=== PATIENT | female | born 1980 | race American Indian/Alaskan Native ===

== ENCOUNTER 2017-02-17 19:05 | Emergency (ER) | payer MEDICARE ==
[2017-02-18] MEDS ORDERED: ULTRAM PO ONE (00:53)
--- NOTE | 2017-02-18 00:55 | Emergency Department Report ---
HPI - General Chief Complaint: Pain General Time Seen by Provider: 02/18/17 00:44 - HPI HPI: Patient is a 36-year-old female with a history of chronic joint pains being treated by a pain specialist, who presents ED complaining of bilateral buttock pain 2 days. Patient states pain is throbbing and sharp and intermittent in nature. Patient states pain travels across both cheeks and sometimes down her thighs. Patient states eating on her back makes the pain worse. Patient denies recent injury or trauma she denies bilateral calf pain. Patient denies fevers chills/nausea/vomiting/abdominal pain/chest pain/ shortness of breath / calf pain bilaterally ED Past Medical Hx - Past Medical History Hx Congestive Heart Failure: No Hx Diabetes: No Hx Asthma: No Hx COPD: No Additional medical history: Neuromyelitis optica - Surgical History Additional Surgical History: right tube removed - Social History Smoking Status: Current Every Day Smoker Substance Use Type: None - Medications Home Medications: Home Medications Medication Instructions Recorded Confirmed Last Taken Type Gabapentin [Neurontin] 3 tab PO TID #270 tablet 05/09/15 04/20/16 04/17/16 Rx ALPRAZolam [Xanax TAB] 2 mg PO BID 04/20/16 04/20/16 04/17/16 History Oxycodone HCl [Roxicodone TAB] 15 mg PO Q4H PRN 04/20/16 04/20/16 04/17/16 History Tizanidine HCl [Zanaflex] 4 mg PO QHS 04/20/16 04/20/16 04/17/16 History HYDROcodone/APAP 7.5-325 [Arrington 1 each PO Q6HR PRN #12 tablet 02/18/17 Unknown Rx 7.5/325] ED Review of Systems ROS: Stated complaint: HIP PAIN Other details as noted in HPI Constitutional: denies: chills, fever Eyes: denies: eye pain, eye discharge, vision change ENT: denies: ear pain, throat pain Respiratory: denies: cough, shortness of breath, wheezing Cardiovascular: denies: chest pain, palpitations Endocrine: no symptoms reported Gastrointestinal: denies: abdominal pain, nausea, vomiting, diarrhea, constipation, hematemesis, melena, hematochezia Genitourinary: denies: urgency, dysuria, frequency, hematuria, discharge Musculoskeletal: denies: back pain, joint swelling, arthralgia Skin: denies: rash, lesions Neurological: denies: headache, weakness, paresthesias Psychiatric: denies: anxiety, depression Hematological/Lymphatic: denies: easy bleeding, easy bruising Physical Exam - Physical Exam Vital Signs: Vital Signs 02/17/17 19:19 Temperature 98.2 F Pulse Rate 89 Respiratory 18 Rate Blood Pressure 117/67 O2 Sat by Pulse 100 Oximetry Physical Exam: GENERAL: Alert and oriented x3, no apparent distress, Normal Gait, atraumatic. HEAD: Head is normocephalic and a-traumatic. EYES: Extra ocular muscles are intact. Pupils are equal, round, and reactive to light and accommodation. NECK: Supple. Non edematous, No carotid bruits. No lymphadenopathy or thyromegaly. LUNGS: Symetrical with respiration, No wheezing, no rales or crackles, CTAB. HEART: S1, S2 present, regular rate and rhythm without murmur, no rubs, no gallops. ABDOMEN: No organomegaly was noted,Positive bowel sounds, soft, and non- distended. . Nontender to palpation on all Quadrants, NO CVA tenderness. EXTREMITIES/MUSCULOSKELETAL: No cyanosis, clubbing, rash, lesions or edema. Full ROM bilaterally. UE/LE Pulses 2+ bilaterally. LE and UE 5+ strength bilaterally. Straight leg raise negative. Nontender to palpation of bilateral cheek, no spinal tenderness full range of motion of back NEUROLOGIC: No focal Deficit, Cranial nerves II through XII are grossly intact. No loss of sensation, PSYCHIATRIC: Mood is congruent with affect, denies suicidal or homicidal ideations. SKIN: Warm and dry, No lesions, No ulceration or induration present. ED Course Vital Signs 02/17/17 19:19 Temperature 98.2 F Pulse Rate 89 Respiratory 18 Rate Blood Pressure 117/67 O2 Sat by Pulse 100 Oximetry ED Medical Decision Making - Medical Decision Making 36-year-old male presents with chronic pain. ED course: Patient received 100 mg as tramadol. Patient denied tramadol and states she is allergic to that as well. 2 tablet of Percocets given to patient while in the ED. Discussed the patient was asked to follow-up with primary care physician Dr. Humphrey for continued management of chronic pain. Discussed with patient home medication of Arrington tabs. Vital signs stable. Patient is in no acute or respiratory distress. Critical care attestation.: If time is entered above; I have spent that time in minutes in the direct care of this critically ill patient, excluding procedure time. ED Disposition Clinical Impression: Lumbar radiculopathy Chronic pain Qualifiers: Chronic pain type: other chronic pain Qualified Code(s): G89.29 - Other chronic pain Disposition: DISCHARGED TO HOME OR SELFCARE Is pt being admited?: No Does the pt Need Aspirin: No Condition: Stable Instructions: Chronic Pain (ED), Lumbar Radiculopathy (ED), Chronic Back Pain ( ED) Additional Instructions: Follow-up with her primary care doctor. Prescriptions: HYDROcodone/APAP 7.5-325 [Arrington 7.5/325] 1 each PO Q6HR PRN #12 tablet PRN Reason: Pain Referrals: JONATHAN AYON MD [Primary Care Provider] - 3-5 Days Forms: Work/School Release Form(ED) Time of Disposition: 00:59
[2017-02-18] MEDS ORDERED: PERCOCET 5/325 PO ONE (01:23)
[2017-02-18 01:53] VITALS: BP 120/65
== END 2017-02-18 01:53 | disposition home or self-care (01) ==
LOC: ED 19:05
DX: M54.16 Radiculopathy, lumbar region (principal); G89.29 Other chronic pain; F17.200 Nicotine dependence, unspecified, uncomplicated
CPT/HCPCS: 99282

== ENCOUNTER 2019-03-08 17:20 | Emergency (ER) | payer MEDICARE ==
--- NOTE | 2019-03-08 18:09 | Emergency Department Report ---
Blank Doc - Documentation Documentation: 38 c/o pain to thoracic pain and pain to legs spontaneous flare. no trauma. no fever or sob. no chest pain.
--- NOTE | 2019-03-08 22:55 | Emergency Department Report ---
ED Lower Extremity HPI - General Chief Complaint: Pain General Stated Complaint: BODY PAIN Time Seen by Provider: 03/08/19 17:56 Source: patient Mode of arrival: Ambulatory Limitations: No Limitations - History of Present Illness Initial Comments: This is a 38-year-old -[place] female who presents with pain to right lower extremity and pain for 3 days. Past medical history neuromyelitis optica. Patient states she believes she is having a flare. Reports pain is worse with walking. Reports numbness with weightbearing to right lower extremity. Patient states she is followed by pain management but ran out oxycodone pain medication. Patient states she had a neurologist at [facility] about unable to get an appointment. She is looking for a new neurologist. She denies visual changes, swelling, recent injury. MD Complaint: leg injury (right lower extremity) Onset/Timin -: days(s) Injury: Leg: Right Type of Injury: unknown Place: home Severity: severe Severity scale (0 -10): 10 Improves With: nothing Worsens With: weight bearing Associated Symptoms: numbness, able to partially bear weight, ambulatory - Related Data Home Medications Medication Instructions Recorded Confirmed Last Taken ALPRAZolam [Xanax TAB] 2 mg PO BID 04/20/16 04/20/16 04/17/16 Tizanidine HCl [Zanaflex] 4 mg PO QHS 04/20/16 04/20/16 04/17/16 Previous Rx's Medication Instructions Recorded Last Taken Type Gabapentin [Neurontin] 3 tab PO TID #270 tablet 05/09/15 04/17/16 Rx HYDROcodone/APAP 7.5-325 [[place] 1 each PO Q6HR PRN #12 tablet 02/18/17 Unknown Rx 7.5/325] Oxycodone HCl [Roxicodone TAB] 15 mg PO Q4H PRN #12 tablet 03/09/19 Unknown Rx Prednisone [predniSONE 10 mg 10 mg PO .TAPER #1 tab.ds.pk 03/09/19 Unknown Rx (6-Day Pack, 21 Tabs)] Allergies Allergy/AdvReac Type Severity Reaction Status Date / Time ibuprofen Allergy Rash Verified 03/08/19 17:23 latex Allergy Hives Verified 03/08/19 17:23 metronidazole [From Flagyl] Allergy Hives Verified 03/08/19 17:23 morphine Allergy Hives Verified 03/08/19 17:23 prochlorperazine edisylate Allergy Swelling Verified 03/08/19 17:23 [From Compazine] prochlorperazine maleate Allergy Swelling Verified 03/08/19 17:23 [From Compazine] sulfamethoxazole Allergy Rash Verified 03/08/19 17:23 [From Septra] tomato Allergy Unknown Verified 03/08/19 17:23 tramadol HCl [From Ultram] Allergy Hives Verified 03/08/19 17:23 trimethoprim [From Septra] Allergy Rash Verified 03/08/19 17:23 ED Review of Systems ROS: Stated complaint: BODY PAIN Other details as noted in HPI Constitutional: denies: chills, fever Respiratory: denies: cough, shortness of breath, wheezing Cardiovascular: denies: chest pain, palpitations Gastrointestinal: denies: abdominal pain, nausea, diarrhea Musculoskeletal: arthralgia (RLE). denies: back pain, joint swelling Skin: denies: rash, lesions Neurological: denies: headache, weakness, paresthesias Psychiatric: denies: anxiety, depression ED Past Medical Hx - Past Medical History Hx Congestive Heart Failure: No Hx Diabetes: No Hx Asthma: No Hx COPD: No Additional medical history: Neuromyelitis optica - Surgical History Additional Surgical History: right tube removed - Social History Smoking Status: Current Every Day Smoker Substance Use Type: None - Medications Home Medications: Home Medications Medication Instructions Recorded Confirmed Last Taken Type Gabapentin [Neurontin] 3 tab PO TID #270 tablet 05/09/15 04/20/16 04/17/16 Rx ALPRAZolam [Xanax TAB] 2 mg PO BID 04/20/16 04/20/16 04/17/16 History Tizanidine HCl [Zanaflex] 4 mg PO QHS 04/20/16 04/20/16 04/17/16 History HYDROcodone/APAP 7.5-325 [[place] 1 each PO Q6HR PRN #12 tablet 02/18/17 Unknown Rx 7.5/325] Oxycodone HCl [Roxicodone TAB] 15 mg PO Q4H PRN #12 tablet 03/09/19 Unknown Rx Prednisone [predniSONE 10 mg 10 mg PO .TAPER #1 tab.ds.pk 03/09/19 Unknown Rx (6-Day Pack, 21 Tabs)] ED Physical Exam - General Limitations: No Limitations General appearance: alert, in no apparent distress - Respiratory Respiratory exam: Present: normal lung sounds bilaterally. Absent: respiratory distress - Cardiovascular Cardiovascular Exam: Present: regular rate, normal rhythm. Absent: systolic murmur, diastolic murmur, rubs, gallop - GI/Abdominal GI/Abdominal exam: Present: soft, normal bowel sounds - Expanded Lower Extremity Exam Right Hip exam: Present: normal inspection, full ROM Upper Leg exam: Present: normal inspection, full ROM Knee exam: Present: normal inspection, full ROM Lower Leg exam: Present: normal inspection, full ROM Ankle exam: Present: normal inspection, full ROM Foot/Toe exam: Present: full ROM. Absent: tenderness, swelling, abrasion, dislocation, erythema, amputation, puncture wound, foreign body Neuro vascular tendon exam: Present: no vascular compromise Gait: Positive: observed and limited by pain - Neurological Exam Neurological exam: Present: alert, oriented X3 - Expanded Neurological Exam Expanded Neurological exam: Present: innattentive. Absent: memory loss-remote event, memory loss-recent event, ataxia, total aphasia, tremor Patient oriented to: Present: person, place, time Speech: Present: fluid speech Cranial nerves: EOM's Intact: Normal, Gag Reflex: Normal, Facial Sensation: Normal Cerebellar function: Finger to Nose: Normal, Heel to Bhakta: Normal Upper motor neuron: Sensory Extinction: Normal Sensory exam: Lower Extremity Light Touch: Normal, Lower Extremity Pin Prick: Normal, Lower Extremity Temperature: Normal Motor strength exam: RLE: 4, LLE: 4 Best Eye Response ([place]): (4) open spontaneously Best Motor Response ([place]): (6) obeys commands Best Verbal Response (Vasile): (5) oriented Vasile Total: 15 - Psychiatric Psychiatric exam: Present: normal affect, normal mood - Skin Skin exam: Present: warm, dry, intact, normal color. Absent: rash ED Course Vital Signs 03/08/19 03/08/19 03/08/19 17:55 21:01 21:40 Temperature 98.2 F Pulse Rate 94 H 72 64 Respiratory 20 18 Rate Blood Pressure 103/71 Blood Pressure 126/80 102/58 [Left] O2 Sat by Pulse 99 97 Oximetry ED Lower Extremity MDM - Medical Decision Making Patient was examined by me. Vitals are normal and patient is in no acute distr ess. Past medical history of neuromyelitis optica. The site initiated. Patient given Solu-Medrol and Dilaudid. Patient reports pain 7 out of 10 on pain scale. Consulted with the attending, Dalton Santiago. Start prednisone and oxycodone for pain. Referral to neurologist. Plan discussed with patient to discharge home and treat outpatient. She agrees with ER plan. Patient discharged home in stable condition. Follow up with PCP in 2-3 days. Critical care attestation.: If time is entered above; I have spent that time in minutes in the direct care of this critically ill patient, excluding procedure time. ED Disposition Clinical Impression: Neuromyelitis optica, Right leg pain Disposition: TO HOME OR SELFCARE Is pt being admited?: No Does the pt Need Aspirin: No Condition: Stable Instructions: Arthralgia (ED) Additional Instructions: Follow-up with the neurologist from the referrals below for continued care. Prescriptions: Prednisone [predniSONE 10 mg (6-Day Pack, 21 Tabs)] 10 mg PO .TAPER #1 tab.ds.pk Oxycodone HCl [Roxicodone TAB] 15 mg PO Q4H PRN #12 tablet PRN Reason: Pain Referrals: TRACY MALAGON MD [Primary Care Provider] - 3-5 Days JUICE THOMAS MD [Staff Physician] - 3-5 Days Time of Disposition: 03:42
[2019-03-08] MEDS ORDERED: SOLU-Medrol IV ONE (22:56)
[2019-03-08] MEDS ORDERED: DILAUDID IV ONE (22:56)
[2019-03-09] MEDS ORDERED: DILAUDID IV ONE (01:46)
[2019-03-09 07:14] VITALS: BP 112/74
== END 2019-03-09 04:00 | disposition home or self-care (01) ==
LOC: ED 17:20
DX: G36.0 Neuromyelitis optica [Devic] (principal); F17.200 Nicotine dependence, unspecified, uncomplicated; M79.604 Pain in right leg; Z88.2 Allergy status to sulfonamides; Z88.8 Allergy status to other drugs, medicaments and biological substances; Z88.6 Allergy status to analgesic agent; Z88.1 Allergy status to other antibiotic agents; Z91.040 Latex allergy status
CPT/HCPCS: 96374; 96375; 96376; 99283; J1170; J2930

== ENCOUNTER 2019-06-07 01:29 | Inpatient (IN) | payer MEDICARE ==
[2019-06-07 03:24] LABS: Basophils % (Auto) 0.6 % (0.0-1.8); Eosinophils # (Auto) 0.1 K/mm3 (0.0-0.4); Eosinophils % (Auto) 2.7 % (0.0-4.3); Hematocrit 37.4 % (30.3-42.9); Hemoglobin 12.2 gm/dl (10.1-14.3); Lymphocytes # (Auto) 2.6 K/mm3 (1.2-5.4); Lymphocytes % (Auto) 48.8 % (13.4-35.0); Mean Corpuscular HGB Conc 33 % (30-34); Mean Corpuscular Volume 80 fl (79-97); Monocytes # (Auto) 0.5 K/mm3 (0.0-0.8); Monocytes % (Auto) 9.1 % (0.0-7.3); Platelet Count 263 K/mm3 (140-440); Red Blood Count 4.67 M/mm3 (3.65-5.03)
[2019-06-07 03:43] LABS: BUN/Creatinine Ratio 6; Blood Urea Nitrogen 5 mg/dL (7-17); Calcium 9.5 mg/dL (8.4-10.2); Hemolysis Index 3
--- NOTE | 2019-06-07 04:35 | Cat Scan Report ---
CT HEAD WITHOUT CONTRAST INDICATION: MAIN: History of MS, Headache for 4 days, right leg is weak and painful, blurred vision. TECHNIQUE: All CT scans at this location are performed using CT dose reduction for ALARA by means of automated e xposure control. COMPARISON: CT 04/20/2016. FINDINGS: HEMORRHAGE: None. EXTRA-AXIAL SPACES: Normal in size and morphology for the patient's age. VENTRICULAR SYSTEM: Normal in size and morphology for the patient's age. BRAIN PARENCHYMA: No acute findings. MIDLINE SHIFT OR HERNIATION: None. ORBITS: Normal as visualized. SOFT TISSUES OF HEAD: Normal. CALVARIUM: Normal. VISUALIZED PARANASAL SINUSES AND MASTOID AIR CELLS: Clear. ADDITIONAL FINDINGS: None. IMPRESSION: 1. No acute intracranial abnormality. Signer Name: Tez Hansen MD Signed: 06/07/2019 4:30 AM Workstation Name: [id number]
--- NOTE | 2019-06-07 06:18 | Emergency Department Report ---
ED General Adult HPI - General Chief complaint: Neuro Symptoms/Deficit Stated complaint: BODY PAIN/NUMBNESS Time Seen by Provider: 06/07/19 06:08 Source: patient Mode of arrival: Ambulatory Limitations: No Limitations - History of Present Illness Initial comments: This is a 38-year-old female with a history of NMO and chronic pain. She is not entirely forthcoming about her medical history. She states she was admitted here 3 months ago but that is inaccurate. When questioned further, she amends her history to an admission at [facility]. She finally admits that she was admitted to [facility] in wor but not discharged until January. Thereafter she has not followed up with any neurologist. She states that she was receiving chronic pain management with oxycodone and Lyrica through a pain clinic that was on [facility] but moved to [place]. She presents with a 2 day history of pain and numbness in her right lower extremity. She states that the numbness begins in her foot and radiates towards her thigh. She doesn't report for acute weakness. She states this is an exacerbation of her NMO I would like to be admitted. She states she is able to walk. From my note 2015 prior to admission: Patient is a poor historian. She carries a diagnosis of NMO. Complains of increasing tingling and numbness of her lower extremities which she states is worse on the left compared to the right. She states that she has generalized pain and generalized weakness. She currently does not have a neurologist. She has been seen and treated at this facility last in September with high-dose steroids. Per her discharge summary: 34 YO Female admitted for BLE weakness secondary to Neuromyelitis Optica. Pt convalesced well during hospital course. Pt treated with IV steroid therapy, with a decreased progression of symptoms. Pt seen and evaluated by PT and deemed a rehab candidate. Case management consulted for D/C planning. Pt medically optimized and subsequently discharged to rehab. Pt evaluated prior to discharge but no significant new physical exam findings. Pt instructed to f/u pcp 1wk, neurology prn. Apparently she is additionally been treated at a pain clinic with chronic narcotics as well as gabapentin. The patient does not now complain of an acute headache. She complains of no breathing difficulty nor any hesitancy or feeling of urinary retention. He does have some chronic pain of her entire spine. She states that she is able to walk. He arrived here fully ambulatory. She does not report any acute change in vision. -: Gradual, days(s) Location: right, lower extremity Quality: aching Consistency: intermittent Improves with: none Worsens with: none Associated Symptoms: denies other symptoms Treatments Prior to Arrival: none - Related Data Home Medications Medication Instructions Recorded Confirmed Last Taken ARIPiprazole [Abilify] 30 mg PO BID 06/07/19 06/07/19 Unknown Previous Rx's Medication Instructions Recorded Last Taken Type Oxycodone HCl [roxiCODONE] 15 mg PO Q4H PRN #12 tablet 03/09/19 Unknown Rx Allergies Allergy/AdvReac Type Severity Reaction Status Date / Time ibuprofen Allergy Rash Verified 03/08/19 17:23 latex Allergy Hives Verified 03/08/19 17:23 metronidazole [From Flagyl] Allergy Hives Verified 03/08/19 17:23 morphine Allergy Hives Verified 03/08/19 17:23 prochlorperazine edisylate Allergy Swelling Verified 03/08/19 17:23 [From Compazine] prochlorperazine maleate Allergy Swelling Verified 03/08/19 17:23 [From Compazine] sulfamethoxazole Allergy Rash Verified 03/08/19 17:23 [From Septra] tomato Allergy Unknown Verified 03/08/19 17:23 tramadol HCl [From Ultram] Allergy Hives Verified 03/08/19 17:23 trimethoprim [From Septra] Allergy Rash Verified 03/08/19 17:23 ED Review of Systems ROS: Stated complaint: BODY PAIN/NUMBNESS Other details as noted in HPI Constitutional: denies: chills, fever Eyes: denies: eye pain, eye discharge, vision change ENT: denies: ear pain, throat pain Respiratory: denies: cough, shortness of breath, wheezing Cardiovascular: denies: chest pain, palpitations Endocrine: no symptoms reported Gastrointestinal: denies: abdominal pain, nausea, diarrhea Genitourinary: denies: urgency, dysuria, discharge Musculoskeletal: as per HPI (chronic pain), other (right lower extremity pain). denies: back pain Skin: denies: rash, lesions Neurological: as per HPI, paresthesias. denies: headache, weakness Psychiatric: denies: anxiety, depression Hematological/Lymphatic: denies: easy bleeding, easy bruising ED Past Medical Hx - Past Medical History Previous Medical History?: Yes Hx Congestive Heart Failure: No Hx Diabetes: No Hx Asthma: No Hx COPD: No Additional medical history: Neuromyelitis optica - Surgical History Additional Surgical History: right fallopian tube removed - Social History Smoking Status: Current Every Day Smoker - Medications Home Medications: Home Medications Medication Instructions Recorded Confirmed Last Taken Type Oxycodone HCl [roxiCODONE] 15 mg PO Q4H PRN #12 tablet 03/09/19 06/07/19 Unknown Rx ARIPiprazole [Abilify] 30 mg PO BID 06/07/19 06/07/19 Unknown History ED Physical Exam - General Limitations: No Limitations General appearance: alert, in no apparent distress, cachectic (somewhat, denies recent weight loss) - Head Head exam: Present: atraumatic, normocephalic - Eye Eye exam: Present: normal appearance, PERRL, EOMI. Absent: scleral icterus - ENT ENT exam: Present: mucous membranes moist - Neck Neck exam: Present: normal inspection. Absent: tenderness, meningismus - Respiratory Respiratory exam: Present: normal lung sounds bilaterally. Absent: respiratory distress - Cardiovascular Cardiovascular Exam: Present: regular rate, normal rhythm. Absent: systolic murmur, diastolic murmur, rubs, gallop - GI/Abdominal GI/Abdominal exam: Present: soft, normal bowel sounds. Absent: distended, tenderness, guarding, rebound, rigid - Extremities Exam Extremities exam: Present: normal inspection, full ROM. Absent: pedal edema, joint swelling, calf tenderness - Back Exam Back exam: Present: normal inspection - Neurological Exam Neurological exam: Present: alert, oriented X3, CN II-XII intact, motor sensory deficit. Absent: reflexes normal (patient does have bilateral clonus of her lower extremities right is substantially worse than the left. She did have 4+ out of 5 strength in her right lower extremity diffusely. She did have some drift. Describes) - Psychiatric Psychiatric exam: Present: normal affect, normal mood - Skin Skin exam: Present: warm, dry, intact, normal color. Absent: rash ED Course Vital Signs 06/07/19 06/07/19 06/07/19 02:37 05:38 05:45 Temperature 98.0 F Pulse Rate 81 Respiratory 18 Rate Blood Pressure 118/74 120/69 O2 Sat by Pulse 100 97 99 Oximetry 06/07/19 05:59 Temperature Pulse Rate 87 Respiratory 16 Rate Blood Pressure O2 Sat by Pulse 100 Oximetry - Reevaluation(s) Reevaluation #1: Discussed with hospitalist. Admit their service. 06/07/19 08:46 ED Medical Decision Making - Lab Data Result diagrams: 06/07/19 03:02 06/07/19 03:02 Laboratory Results - last 24 hr 06/07/19 06/07/19 06/07/19 03:02 03:02 03:02 WBC 5.2 RBC 4.67 Hgb 12.2 Hct 37.4 MCV 80 MCH 26 L MCHC 33 RDW 18.0 H Plt Count 263 Lymph % (Auto) 48.8 H [place] % (Auto) 9.1 H Eos % (Auto) 2.7 Baso % (Auto) 0.6 Lymph # 2.6 [place] # 0.5 Eos # 0.1 Baso # 0.0 Seg Neutrophils % 38.8 L Seg Neutrophils # 2.0 Sodium 142 Potassium 4.1 Chloride 102.3 Carbon Dioxide 28 Anion Gap 16 BUN 5 L Creatinine 0.9 Estimated GFR > 60 BUN/Creatinine Ratio 6 Glucose 90 Calcium 9.5 HCG, Qual Negative Critical care attestation.: If time is entered above; I have spent that time in minutes in the direct care of this critically ill patient, excluding procedure time. ED Disposition Clinical Impression: Neuromyelitis optica, Weakness of right lower extremity, Paresthesia of bilateral legs, Non-compliance Chronic pain Qualifiers: Chronic pain type: other chronic pain Qualified Code(s): G89.29 - Other chronic pain Disposition: DC-09 OP ADMIT IP TO THIS HOSP Is pt being admited?: Yes Does the pt Need Aspirin: Yes Condition: Stable Referrals: SHANT FLANAGAN DO [Primary Care Provider] - 3-5 Days Time of Disposition: 08:47
[2019-06-07] MEDS ORDERED: NACL 0.9% 1000 ML 1,000 ML IV ONE (06:49)
[2019-06-07] MEDS ORDERED: SOLU-Medrol IV ONE (06:49)
[2019-06-07] MEDS ORDERED: ZOFRAN IV ONE (06:49)
[2019-06-07] MEDS ORDERED: DILAUDID IV ONE (06:50)
[2019-06-07] MEDS ORDERED: BENADRYL IV ONE (06:50)
--- NOTE | 2019-06-07 09:00 | History and Physical Report ---
History of Present Illness Date of examination: 06/07/19 Date of admission: 06/07/19 Chief complaint: Bilateral lower extremity weakness and numbness for the last 2 days History of present illness: 38-year-old -[place] female patient with significant past medical history of Neuromyelitis optica, multiple admissions in the past, recently admitted to [facility] presented to the emergency room with bilateral lower extremity weakness and numbness for the last 2 days, She also sees pain management for her chronic pain syndrome Patient denies any headache dizziness, Denies nausea vomiting abdominal pain, Denies chest pain or shortness of breath ,No history of trauma She complains of generalized body pains CT head without contrast no acute abnormality noted Received high dose solumedrol emergency room Past History Past Medical History: other (Neuromyelitis optica, chronic pain syndrome, history of depression) Past Surgical History: Other (ectopic ) Social history: smoking, full code. denies: alcohol abuse, prescription drug abuse Family history: hypertension Medications and Allergies Allergies Allergy/AdvReac Type Severity Reaction Status Date / Time ibuprofen Allergy Rash Verified 03/08/19 17:23 latex Allergy Hives Verified 03/08/19 17:23 metronidazole [From Flagyl] Allergy Hives Verified 03/08/19 17:23 morphine Allergy Hives Verified 03/08/19 17:23 prochlorperazine edisylate Allergy Swelling Verified 03/08/19 17:23 [From Compazine] prochlorperazine maleate Allergy Swelling Verified 03/08/19 17:23 [From Compazine] sulfamethoxazole Allergy Rash Verified 03/08/19 17:23 [From Septra] tomato Allergy Unknown Verified 03/08/19 17:23 tramadol HCl [From Ultram] Allergy Hives Verified 03/08/19 17:23 trimethoprim [From Septra] Allergy Rash Verified 03/08/19 17:23 Home Medications Medication Instructions Recorded Confirmed Last Taken Type Oxycodone HCl [roxiCODONE] 15 mg PO Q4H PRN #12 tablet 03/09/19 06/07/19 Unknown Rx ARIPiprazole [Abilify] 30 mg PO BID 06/07/19 06/07/19 Unknown History Active Meds: Active Medications Sodium Chloride (Nacl 0.9% 1000 Ml) 1,000 mls @ 125 mls/hr IV ONCE ONE Stop: 06/07/19 14:48 Last Admin: 06/07/19 08:03 Dose: 125 mls/hr Documented by: Review of Systems Constitutional: fatigue, weakness Ears, nose, mouth and throat: no nasal congestion, no nasal discharge Cardiovascular: no chest pain, no orthopnea, no palpitations Respiratory: no cough, no shortness of breath Gastrointestinal: no nausea, no vomiting Genitourinary Female: no flank pain, no dysuria Musculoskeletal: leg numbness/tingling, muscle weakness, myalgias, other (bilateral lower extremity weakness) Integumentary: no rash, no lesions Neurological: weakness, parathesias, numbness Psychiatric: no anxiety, no depression Endocrine: no cold intolerance, no heat intolerance Hematologic/Lymphatic: no easy bruising, no easy bleeding Allergic/Immunologic: no urticaria, no allergic rhinitis Exam - Constitutional Vitals: Temp Pulse Resp BP Pulse Ox 98.0 F 87 16 120/69 100 06/07/19 02:37 06/07/19 05:59 06/07/19 05:59 06/07/19 05:45 06/07/19 05:59 General appearance: Present: no acute distress, cachectic, disheveled - EENT Eyes: Present: PERRL, EOM intact - Neck Neck: Present: supple, normal ROM - Respiratory Respiratory effort: normal Respiratory: bilateral: diminished, negative: rales, rhonchi, wheezing - Cardiovascular Rhythm: regular Heart Sounds: Present: S1 & S2 - Extremities Extremities: no ischemia, No edema - Abdominal General gastrointestinal: Present: soft, non-tender, non-distended, normal bowel sounds - Integumentary Integumentary: Present: clear, warm - Musculoskeletal Musculoskeletal: generalized weakness (bilateral lower extremity weakness) - Psychiatric Psychiatric: appropriate mood/affect, cooperative - Neurologic Neurologic: other (bilateral lower extremity weakness, ) Results - Labs CBC & Chem 7: 06/07/19 03:02 06/07/19 03:02 Labs: Abnormal lab results 06/07/19 06/07/19 Range/Units 03:02 03:02 MCH 26 L (28-32) pg RDW 18.0 H (13.2-15.2) % Lymph % (Auto) 48.8 H (13.4-35.0) % [place] % (Auto) 9.1 H (0.0-7.3) % Seg Neutrophils % 38.8 L (40.0-70.0) % BUN 5 L (7-17) mg/dL Assessment and Plan - Patient Problems (1) Neuromyelitis optica Current Visit: Yes Status: Acute Plan to address problem: Patient has history of neuromyelitis optica for many years Came by and lower extremity weakness and numbness IV steroids, pain medications, physical therapy. Occupational therapy Neurology consult (2) Paresthesia of bilateral legs Current Visit: Yes Status: Acute Plan to address problem: Secondary to NMO Continue steroids, supportive care (3) Chronic pain Current Visit: Yes Status: Acute Qualifiers: Chronic pain type: other chronic pain Qualified Code(s): G89.29 - Other chronic pain Plan to address problem: Patient follows pain management for chronic pain needs Pain medications and supportive care (4) Bilateral leg weakness Current Visit: No Status: Acute Plan to address problem: Steroids, supportive care, PT and OT (5) DVT prophylaxis Current Visit: No Status: Acute Plan to address problem: Lovenox (6) Tobacco abuse Current Visit: Yes Status: Acute Plan to address problem: Smoking cessation, advised nicotine patch (7) Tobacco abuse counseling Current Visit: Yes Status: Acute
[2019-06-07] MEDS ORDERED: PERCOCET 5/325 PO PRN (09:04)
[2019-06-07] MEDS ORDERED: NACL 0.9% 1000 ML 1,000 ML IV SCH (10:00)
[2019-06-07] MEDS: PEPCID PO SCH ×2 (12:51→21:16)
[2019-06-07] MEDS ORDERED: SOLU-Medrol IV SCH (14:00)
[2019-06-07] MEDS ORDERED: DILAUDID IM PRN (16:50)
[2019-06-07] MEDS: DILAUDID IV PRN ×2 (17:22→23:33)
--- NOTE | 2019-06-07 19:02 | Progress Note ---
Subjective Date of service: 06/07/19 Interval history: spoke to Dr. Carson earlier ther CT of brain is normal wehich is expected in this form of MS pain is majort issue and she has been on oxycodone po prior so this can safely be resumed I will follow with you no need for LP as w/u established as previous Objective - Vital Sign Vital Signs - 12hr 06/07/19 06/07/19 06/07/19 07:11 07:21 07:30 Temperature Pulse Rate Respiratory Rate Blood Pressure 118/69 118/69 110/66 Blood Pressure [Right] O2 Sat by Pulse 100 100 100 Oximetry 06/07/19 06/07/19 06/07/19 07:41 07:51 08:30 Temperature Pulse Rate Respiratory Rate Blood Pressure 110/66 110/66 135/93 Blood Pressure [Right] O2 Sat by Pulse 100 100 Oximetry 06/07/19 06/07/19 06/07/19 09:00 09:31 10:00 Temperature Pulse Rate Respiratory Rate Blood Pressure 117/72 98/50 93/46 Blood Pressure [Right] O2 Sat by Pulse Oximetry 06/07/19 06/07/19 06/07/19 10:30 11:00 11:05 Temperature 98.7 F Pulse Rate 58 L Respiratory 16 Rate Blood Pressure 91/47 102/58 Blood Pressure 102/61 [Right] O2 Sat by Pulse 99 Oximetry 06/07/19 06/07/19 11:41 16:59 Temperature 98.1 F 98.2 F Pulse Rate 58 L 54 L Respiratory 16 18 Rate Blood Pressure 91/47 110/53 Blood Pressure [Right] O2 Sat by Pulse 100 100 Oximetry - Laboratory Findings CBC and BMP: 06/07/19 03:02 06/07/19 03:02 Abnormal Lab Findings: Abnormal Labs 06/07/19 06/07/19 03:02 03:02 MCH 26 L RDW 18.0 H Lymph % (Auto) 48.8 H Nolan % (Auto) 9.1 H Seg Neutrophils % 38.8 L BUN 5 L
[2019-06-07] MEDS: ROXICODONE PO PRN (20:15)
[2019-06-07] MEDS: SOLU-Medrol IV SCH (22:04)
[2019-06-07 22:07] LABS: Bacteria,Urine 1+ /HPF (Negative); Bilirubin,Urine NEG (Negative); Blood,Urine SM (Negative); Color,Urine Yellow (Yellow); Mucus,Urine 2+ /HPF; Protein,Urine <15 mg/dL mg/dL (Negative)
[2019-06-07 22:13] LABS: Amphetamine Screen,Urine PRESUMPTIVE NEGATIVE; Benzodiazepines Screen,Urine PRESUMPTIVE NEGATIVE; Cannabinoid Screen,Urine PRESUMPTIVE NEGATIVE; Cocaine Screen,Urine PRESUMPTIVE NEGATIVE; Methadone Screen,Urine PRESUMPTIVE NEGATIVE; Opiate Screen,Urine PRESUMPTIVE NEGATIVE
--- NOTE | 2019-06-07 23:36 | Consultation ---
HISTORY OF PRESENT ILLNESS: This is a 38-year-old black female admitted to [facility] as emergency admission because of worsening complications of MS, namely that she had lost feeling and use of her left leg. She has a 14 to 15-year history of neuromyelitis optica, progressive MS. She at home takes Lyrica, oxycodone. I did question her closely whether she was taking a disease modifying therapy and she did not admit to this being the case. I have reviewed over her MR CT scan of the head. I do not see any remarkable abnormalities in this. Certainly, the wall and white matter appeared normal on this particular study. ALLERGIES: IBUPROFEN, LASIX, METRONIDAZOLE, MORPHINE and OTHER MEDICATIONS. SOCIAL HISTORY: Does not smoke, does not drink. She is disabled due to her MS. PHYSICAL EXAMINATION: On my examination, the patient's vital signs revealed blood pressure to be 102/61, pulse rate is 80, respirations 16, pO2 on room air is 99%. Ocular movements are full. She has weakness of the left leg. Absent reflexes in the ankle. Babinski sign is not present. No tremors or asterixis. Visual varela are full. Affect is appropriate. Neck is supple. She does complain of pain at present time in the left leg and she states she has severe body pain throughout. IMPRESSION: 1. Severe causalgia related to multiple sclerosis. 2. Multiple sclerosis of neuromyelitis optica variant. PLAN: We will get MRI scan of the cervical spine and brain. It is okay to give her oxycodone at this point. JOB# [id number] PARUL/KARMA
[2019-06-08] MEDS: ROXICODONE PO PRN ×3 (00:50→09:21)
[2019-06-08 05:39] VITALS: BP 119/59
[2019-06-08] MEDS: DILAUDID IV PRN (05:57)
[2019-06-08] MEDS: SOLU-Medrol IV SCH (05:58)
[2019-06-08] MEDS ORDERED: ROXICODONE PO PRN (09:24)
--- NOTE | 2019-06-08 09:27 | Progress Note ---
Assessment and Plan Assessment and plan: (1) Neuromyelitis optica Current Visit: Yes Status: Acute Plan to address problem: Patient has history of neuromyelitis optica for many years Came by and lower extremity weakness and numbness IV steroids, pain medications, physical therapy. Occupational therapy Neurology consult (2) Paresthesia of bilateral legs Current Visit: Yes Status: Acute Plan to address problem: Secondary to NMO Continue steroids, supportive care (3) Chronic pain Current Visit: Yes Status: Acute Qualifiers: Chronic pain type: other chronic pain Qualified Code(s): G89.29 - Other chronic pain Plan to address problem: Patient follows pain management for chronic pain needs Pain medications and supportive care (4) Bilateral leg weakness Current Visit: No Status: Acute Plan to address problem: Steroids, supportive care, PT and OT (5) DVT prophylaxis Current Visit: No Status: Acute Plan to address problem: Lovenox (6) Tobacco abuse Current Visit: Yes Status: Acute Plan to address problem: Smoking cessation, advised nicotine patch (7) Tobacco abuse counseling Current Visit: Yes Status: Acute History Interval history: Patient seen and examined medical records reviewed Patient expected to however for complaints of severe pain Asking for more pain medications Alert awake oriented 3 Vital signs noted Hospitalist Physical - Constitutional Vitals: Temp Pulse Resp BP Pulse Ox 97.6 F 51 L 18 119/59 98 06/08/19 05:26 06/08/19 05:26 06/08/19 05:26 06/08/19 05:26 06/08/19 05:26 General appearance: Present: no acute distress, cachectic - EENT Eyes: Present: PERRL, EOM intact - Neck Neck: Present: supple, normal ROM - Respiratory Respiratory effort: normal Respiratory: bilateral: diminished, negative: rales, rhonchi, wheezing - Cardiovascular Rhythm: regular Heart Sounds: Present: S1 & S2 - Extremities Extremities: no ischemia, No edema - Abdominal General gastrointestinal: soft, non-tender, non-distended, normal bowel sounds - Integumentary Integumentary: Present: clear, warm - Psychiatric Psychiatric: appropriate mood/affect, cooperative - Neurologic Neurologic: CNII-XII intact, moves all extremities Results - Labs CBC & Chem 7: 06/07/19 03:02 06/07/19 03:02 Labs: Laboratory Last Values WBC 5.2 K/mm3 (4.5-11.0) 06/07/19 03:02 RBC 4.67 M/mm3 (3.65-5.03) 06/07/19 03:02 Hgb 12.2 gm/dl (10.1-14.3) 06/07/19 03:02 Hct 37.4 % (30.3-42.9) 06/07/19 03:02 MCV 80 fl (79-97) 06/07/19 03:02 MCH 26 pg (28-32) L 06/07/19 03:02 MCHC 33 % (30-34) 06/07/19 03:02 RDW 18.0 % (13.2-15.2) H 06/07/19 03:02 Plt Count 263 K/mm3 (140-440) 06/07/19 03:02 Lymph % (Auto) 48.8 % (13.4-35.0) H 06/07/19 03:02 [place] % (Auto) 9.1 % (0.0-7.3) H 06/07/19 03:02 Eos % (Auto) 2.7 % (0.0-4.3) 06/07/19 03:02 Baso % (Auto) 0.6 % (0.0-1.8) 06/07/19 03:02 Lymph # 2.6 K/mm3 (1.2-5.4) 06/07/19 03:02 Hyde # 0.5 K/mm3 (0.0-0.8) 06/07/19 03:02 Eos # 0.1 K/mm3 (0.0-0.4) 06/07/19 03:02 Baso # 0.0 K/mm3 (0.0-0.1) 06/07/19 03:02 Seg Neutrophils % 38.8 % (40.0-70.0) L 06/07/19 03:02 Seg Neutrophils # 2.0 K/mm3 (1.8-7.7) 06/07/19 03:02 Sodium 142 mmol/L (137-145) 06/07/19 03:02 Potassium 4.1 mmol/L (3.6-5.0) 06/07/19 03:02 Chloride 102.3 mmol/L (98-107) 06/07/19 03:02 Carbon Dioxide 28 mmol/L (22-30) 06/07/19 03:02 16 mmol/L 06/07/19 03:02 BUN 5 mg/dL (7-17) L 06/07/19 03:02 0.9 mg/dL (0.7-1.2) 06/07/19 03:02 Estimated GFR > 60 ml/min 06/07/19 03:02 6 % 06/07/19 03:02 Glucose 90 mg/dL (65-100) 06/07/19 03:02 Calcium 9.5 mg/dL (8.4-10.2) 06/07/19 03:02 HCG, Qual Negative (Negative) 06/07/19 03:02 Yellow (Yellow) 06/07/19 21:30 Slightly-cloudy (Clear) 06/07/19 21:30 6.0 (5.0-7.0) 06/07/19 21:30 Ur Specific [place] 1.016 (1.003-1.030) 06/07/19 21:30 <15 mg/dl mg/dL (Negative) 06/07/19 21:30 Neg mg/dL (Negative) 06/07/19 21:30 Neg mg/dL (Negative) 06/07/19 21:30 Sm (Negative) 06/07/19 21:30 Neg (Negative) 06/07/19 21:30 Neg (Negative) 06/07/19 21:30 4.0 mg/dL (<2.0) 06/07/19 21:30 Ur Leukocyte Esterase Neg (Negative) 06/07/19 21:30 1.0 /HPF (0.0-6.0) 06/07/19 21:30 12.0 /HPF (0.0-6.0) 06/07/19 21:30 U Epithel Cells (Auto) 7.0 /HPF (0-13.0) 06/07/19 21:30 1+ /HPF (Negative) 06/07/19 21:30 2+ /HPF 06/07/19 21:30 Presumptive negative 06/07/19 21:30 Presumptive negative 06/07/19 21:30 Ur Barbiturates Screen Presumptive negative 06/07/19 21:30 Ur Phencyclidine Scrn Presumptive negative 06/07/19 21:30 Ur Amphetamines Screen Presumptive negative 06/07/19 21:30 U Benzodiazepines Scrn Presumptive negative 06/07/19 21:30 Presumptive negative 06/07/19 21:30 U Marijuana (THC) Screen Presumptive negative 06/07/19 21:30 Disclamer 06/07/19 21:30 Active Medications - Current Medications Current Medications: Generic Name Dose Route Start Last Admin Trade Name Freq PRN Reason Stop Dose Admin Famotidine 20 mg 06/07/19 10:00 06/07/19 21:16 Pepcid PO 20 mg BID AROLDO Administration Methylprednisolone Sodium Succinate 60 mg 06/08/19 09:25 Solu-Medrol IV Q8HR AROLDO Miscellaneous Medication 150 mg 06/08/19 14:00 Pregabalin [Lyrica] PO TID AROLDO Miscellaneous Medication 30 mg 06/08/19 10:00 Aripiprazole [Abilify] PO BID AROLDO Oxycodone HCl 15 mg 06/08/19 09:24 Roxicodone PO Q4H PRN Pain, Moderate (4-6) Oxycodone/Acetaminophen 1 tab 06/07/19 09:04 06/07/19 12:51 Percocet 5/325 PO 1 tab Q6H PRN Administration Pain, Moderate (4-6)
[2019-06-08] MEDS ORDERED: LYRICA PO SCH (09:30)
[2019-06-08] MEDS ORDERED: ARIPIPRAZOLE 30 MG PO SCH (10:00)
[2019-06-08] MEDS ORDERED: ABILIFY PO SCH (10:00)
[2019-06-08] MEDS ORDERED: DILAUDID IM PRN (10:09)
--- NOTE | 2019-06-08 10:51 | Discharge Summary ---
Providers - Providers Date of Admission: 06/07/19 09:58 Attending physician: GIANNA GROSS 06/07/19 10:55 Consult to Physician [CONS] Routine Comment: Consulting Provider: JUICE THOMAS Physician Instructions: Reason For Exam: Neuromyelitis Optica/sherron LE weakness /numbness Primary care physician: SHANT FLANAGAN DO Hospitalization Reason for admission: Sherron LE weakness/Neuromyelitis Optica Condition: Stable Pertinent studies: CT head without contrast no acute abnormality noted Hospital course: 38-year-old -[place] female patient with significant past medical history of Neuromyelitis optica, multiple admissions in the past, recently admitted to [facility] presented to the emergency room with bilateral lower extremity weakness and numbness for the last 2 days, She also sees pain management for her chronic pain syndrome Patient denies any headache dizziness, Denies nausea vomiting abdominal pain, Denies chest pain or shortness of breath ,No history of trauma, She complains of generalized body pains, CT head without contrast no acute abnormality noted Received high dose solumedrol emergency room. Admitted ,managed with tapering doses of syeroids and supportive care. Evaluated by neurologist,adv to continue current mgmt .However patient wanted to go to her regular physician at a [facility] and left AMA.Risks and complications of leaving AMA d/w the patient and patient verbalised understanding. Signed AMA nite and left Discharge Diagnosis: -- Neuromyelitis optica Current Visit: Yes Status: Acute Plan to address problem: Patient has history of neuromyelitis optica for many years Came by and lower extremity weakness and numbness IV steroids, pain medications, physical therapy. Occupational therapy Neurology consult -- Paresthesia of bilateral legs Current Visit: Yes Status: Acute Plan to address problem: Secondary to NMO Continue steroids, supportive care -- Chronic pain Current Visit: Yes Status: Acute Qualifiers: Chronic pain type: other chronic pain Qualified Code(s): G89.29 - Other chronic pain Plan to address problem: Patient follows pain management for chronic pain needs Pain medications and supportive care --Bilateral leg weakness Current Visit: No Status: Acute Plan to address problem: Steroids, supportive care, PT and OT (5) DVT prophylaxis Current Visit: No Status: Acute Plan to address problem: Lovenox -- Tobacco abuse Current Visit: Yes Status: Acute Plan to address problem: Smoking cessation, advised nicotine patch --Tobacco abuse counseling Current Visit: Yes Status: Acute --moderate malnutrition; present on admission BMI 17.8, advised nutrition supplements, advised to increase oral intake and supportive care Nutrition consult as needed Disposition: DC-07 LEFT AGAINST MED ADVICE Time spent for discharge: 31 min Core Measure Documentation - Palliative Care Palliative Care/ Comfort Measures: Not Applicable - Core Measures Any of the following diagnoses?: none Exam - Constitutional Vitals: Temp Pulse Resp BP Pulse Ox 97.6 F 51 L 18 119/59 98 06/08/19 05:06/08/19 05:06/08/19 05:06/08/19 05:06/08/19 05:26 General appearance: Present: no acute distress, cachectic, disheveled - EENT Eyes: Present: PERRL, EOM intact - Neck Neck: Present: supple, normal ROM - Respiratory Respiratory effort: normal Respiratory: bilateral: diminished, negative: rales, rhonchi, wheezing - Cardiovascular Rhythm: regular Heart Sounds: Present: S1 & S2 - Extremities Extremities: no ischemia, No edema - Abdominal General gastrointestinal: Present: soft, non-tender, non-distended, normal bowel sounds - Integumentary Integumentary: Present: clear, warm - Musculoskeletal Musculoskeletal: generalized weakness - Psychiatric Psychiatric: appropriate mood/affect, cooperative - Neurologic Neurologic: moves all extremities Plan Activity: advance as tolerated Diet: regular Follow up with: SHANT FLANAGAN DO [Primary Care Provider] - 3-5 Days
[2019-06-08] MEDS ORDERED: SOLU-Medrol IV SCH (14:00)
[2019-06-08] MEDS ORDERED: NON-FORMULARY (Pregabalin [Lyrica] 150 MG) PO SCH (14:00)
== END 2019-06-08 10:00 | disposition left against medical advice (07) | DRG 59 ==
LOC: ED 01:29 → 3A 09:58
PROVIDERS: ADMIT Internal Medicine; ATTEND Internal Medicine
DX: G36.0 Neuromyelitis optica [Devic] (principal); E44.0 Moderate protein-calorie malnutrition; Z68.1 Body mass index [BMI] 19.9 or less, adult; R20.2 Paresthesia of skin; F17.200 Nicotine dependence, unspecified, uncomplicated; G56.40 Causalgia of unspecified upper limb; G35 Multiple sclerosis; F32.9 Major depressive disorder, single episode, unspecified; Z71.6 Tobacco abuse counseling; Z82.49 Family history of ischemic heart disease and other diseases of the circulatory system; Z88.5 Allergy status to narcotic agent; Z91.040 Latex allergy status; Z91.14 Patient's other noncompliance with medication regimen
CPT/HCPCS: 36415; 70450; 80048; 80307; 81001; 84703; 85025; 87116; 96361; 96374; 96375; 99406; G0378; J1170; J1200; J2405; J2930; J7030